=== PATIENT | male | born 1995 | race Caucasian/White ===

== ENCOUNTER 2017-01-08 15:47 | Emergency (ER) | payer OTHER ==
--- NOTE | ~2017-01-08 | CR142 ---
[facility] A Service of [facility] RADIOLOGY TEXT RESULTS PATIENT: RADHA BEDOYA LOCATION: [place] : [birth year] UNIT #: [id number] AGE: [address]: Rosy Palacios APRN SEX: M ORDER DR: [id number] [facility] [address] [place], [place] [address] [id number] MR#: [id number] Acc #: [id number] NAME: RADHA BEDOYA : 1995 SEX: M STUDY DATE/TIME: 01/08/2017 16:48 UNIT: CFTX ROOM: STUDY DESCRIPTION: CR Hand Min 3 Views Rt Attending Physician: Roys Palacios A.P.R.N. Ordering Physician: Ed Doctor [id number] [facility] Primary Care Physician: Meron Pisano M.D. MEDICAL IMAGING REPORT This report is preliminary unless electronic signature is present EXAM Three views right hand. Date 01/08/2017 HISTORY Right hand pain and swelling after falling on today. COMPARISON The right hand radiographs 07/18/2014. FINDINGS Chronic-appearing irregularity of the proximal fifth metacarpal may represent slight old healed fracture. It has a similar appearance to the 07/18/2014 examination. No acute fracture or joint dislocation is seen. No retained radiopaque foreign body. No significant osteoarthritic change. IMPRESSION Findings consistent with old healed proximal right fifth metacarpal fracture, unchanged from 07/18/2014. No acute abnormality of the right hand. Dictated by... Ivelisse Antunez M.D. THIS IS AN ELECTRONICALLY VERIFIED REPORT Ivelisse Antunez M.D. at 01/09/2017 8:29 AM JESSICA/david TD: 01/08/2017 22:58 [facility] A Service [facility] RADIOLOGY TEXT RESULTS PATIENT: RADHA BEDOYA LOCATION: [facility] : [birth year] UNIT #: [id number] AGE: [address]: Rosy Palacios APRN SEX: M ORDER DR: JOB #: [id number] MEDICAL IMAGING REPORT Page 1 of 1 COPY
[~2017-01-08 15:47] MED LIST: ADDERALLXR PO; CAPITAL W/CODE473 ML PO; KEFLEX250 M3 PO; NAPROSYN375 MG PO; NAPROSYN500 MG PO; NO MEDICATIONS; PERCOCET5/325 PO; TYLENOL #3 PO; ULTRAM PO
== END 2017-01-08 17:50 | disposition home or self-care (01) ==
LOC: CFTX 15:47 → CED 15:47 → CFTX 17:33 → CED 17:33 → CFTX 17:37 → CED 17:50
DX: S60.221A Contusion of right hand, initial encounter (principal); F17.200 Nicotine dependence, unspecified, uncomplicated; W18.30XA Fall on same level, unspecified, initial encounter; Y92.098 Other place in other non-institutional residence as the place of occurrence of the external cause
CPT/HCPCS: 29280; 73130; 99283